=== PATIENT | female | born 1960 | race Caucasian/White ===

== ENCOUNTER 2017-02-27 21:31 | Emergency (ER) | payer MEDICAID, OTHER, SELFPAY ==
[~2017-02-27] VITALS: Ht 162.6 cm; Wt 51.3 kg
[2017-02-27] MEDS ORDERED: LIDOCAINE 2% VISCOUS 15 ML UDC MM ONE (22:00)
[2017-02-27 22:48] VITALS: BP 121/69
[2017-02-28] MEDS ORDERED: FLUORESCEIN OPHTHALMIC 1 MG STRIP ONE (00:06)
[2017-02-28] MEDS ORDERED: PROPARACAINE OPHTH 0.5%, 15ML ONE (00:06)
== END 2017-02-27 22:58 | disposition home or self-care (01) ==
LOC: ED 22:40
DX: J02.8 Acute pharyngitis due to other specified organisms (principal); E05.90 Thyrotoxicosis, unspecified without thyrotoxic crisis or storm
CPT/HCPCS: 99283